=== PATIENT | female | born 1965 | race Caucasian/White ===

== ENCOUNTER 2017-03-01 07:32 | Emergency (ER) | payer BC ==
[2017-03-01 07:43] VITALS: BP 108/67
--- NOTE | 2017-03-01 07:49 | UC ---
Elbow Pain - HPI Summary HPI Summary: 51 yo female slipped and fell 2 days ago injuring left elbow she is right handed unable to fully extend - History of Current Complaint Chief Complaint: UCUpperExtremity Stated Complaint: LEFT ARM INJURY Time Seen by Provider: 03/01/17 07:37 Hx Obtained From: Patient Hx Last Menstrual Period: 3 years Onset/Duration: Days Severity Initially: Moderate Severity Currently: Moderate Pain Intensity: 4 Pain Scale Used: 0-10 Numeric Location Of Pain: Is Diffuse Character: Aching Aggravating Factor(s): Movement Alleviating Factor(s): Rest Associated Signs And Symptoms: Positive: Swelling, Bruising - Allergies/Home Medications Allergies/Adverse Reactions: Allergies Allergy/AdvReac Type Severity Reaction Status Date / Time No Known Allergies Allergy Verified 03/01/17 07:36 Home Medications: Home Medications Albuterol HFA INHALER* [Ventolin HFA Inhaler*] 2 puff INH Q4H PRN 03/01/17 [ History Confirmed 03/01/17] Cyclobenzaprine TAB* [Flexeril 10 MG TAB*] 5 mg PO TID PRN 03/01/17 [History Confirmed 03/01/17] PMH/Surg Hx/FS Hx/Imm Hx Previously Healthy: Yes Respiratory History Of: Reports: Asthma Cancer History Of: Denies: Breast Cancer - Surgical History Surgical History: Yes Surgery Procedure, Year, and Place: 2 C-SECT KNEE SX hernia repair. [facility] - Family History Known Family History: Positive: Cardiac Disease, Hypertension - Social History Alcohol Use: Occasionally Substance Use Type: None Smoking Status (MU): Never Smoked Tobacco Review of Systems Constitutional: Negative Skin: Bruising Eyes: Negative ENT: Negative Respiratory: Negative Cardiovascular: Negative Gastrointestinal: Negative Genitourinary: Negative Motor: Negative Neurovascular: Negative Musculoskeletal: Arthralgia Neurological: Negative Psychological: Negative All Other Systems Reviewed And Are Negative: Yes Physical Exam Triage Information Reviewed: Yes Appearance: Well-Appearing, No Pain Distress, Well-Nourished Vital Signs: Initial Vital Signs Temp 98.4 F 03/01/17 07:38 Pulse 82 03/01/17 07:38 Resp 18 03/01/17 07:38 BP 108/67 03/01/17 07:38 Pulse Ox 98 03/01/17 07:38 Vital Signs Reviewed: Yes Eyes: Positive: Conjunctiva Clear ENT: Positive: Hearing grossly normal. Negative: Nasal congestion, Nasal drainage, Trismus, Muffled/hoarse voice Neck: Positive: Supple, Nontender Respiratory: Positive: Lungs clear, Normal breath sounds, No respiratory distress Cardiovascular: Positive: RRR, No Murmur Musculoskeletal: Positive: ROM Limited @ - left elbow, unable to fully extend, Other: - bruising olecranon, diffusely tender, distal n/v intact Neurological: Positive: Alert Psychological Exam: Normal Skin: Negative: rashes, breakdown Elbow Pain Course/Dx - Differential Dx/Diagnosis Provider Diagnoses: left elbow injury (possible impaction fracture of radial head) Discharge - Discharge Plan Condition: Stable Disposition: HOME Patient Education Materials: Elbow Fracture (ED) Referrals: Tre Jarvis MD [Medical Doctor] - As Soon As Possible Additional Instructions: You MAY have an impaction fracture of the radial head The radiologist could not tell for sure Because you can not fully extend your elbow I suggest you see ortho alessandra ice twice daily motrin sling when necessary you may use your arm as tolerated
--- NOTE | 2017-03-01 08:14 | RAD ---
INDICATION: LEFT elbow pain radiating into the hand post fall 2 days ago. COMPARISON: None. TECHNIQUE: AP, lateral, and oblique views LEFT elbow. REPORT: While there is no significant fat pad displacement to indicate effusion there is a sharply angulated contour at the ulnar margin of the radial head neck junction concerning for potential subtle impaction fracture. Normal articular alignment. Dorsal soft tissue swelling. IMPRESSION: Potential mild impaction fracture at the radial head neck junction. No significant associated joint effusion.
== END 2017-03-01 08:37 | disposition home or self-care (01) ==
LOC: UCCORT 07:32
DX: S59.802A Other specified injuries of left elbow, initial encounter (principal); W01.0XXA Fall on same level from slipping, tripping and stumbling without subsequent striking against object, initial encounter; Y93.9 Activity, unspecified; Y99.9 Unspecified external cause status
CPT/HCPCS: 99213; G0463

== ENCOUNTER 2017-07-13 12:02 | Emergency (ER) | payer BC ==
[2017-07-13] MEDS ORDERED: predniSONE TAB* 20 MG PO ONE (12:20)
[2017-07-13] MEDS ORDERED: Albuterol/Ipratropium NEB.SOL* Albuterol 2.5 MG/Ipratropium 0.5 MG 3 ML INH ONE (12:20)
[2017-07-13 12:25] VITALS: BP 139/79
--- NOTE | 2017-07-13 12:40 | UC ---
Respiratory Complaint HPI - HPI Summary HPI Summary: cough and sinus congestion with chest burning for 2 days--no fevers daughter is in the ICU with elevated BS - History of Current Complaint Chief Complaint: UCRespiratory Stated Complaint: CONGESTION/COUGH Time Seen by Provider: 07/13/17 12:06 Hx Obtained From: Patient Hx Last Menstrual Period: 3 years ?: No Onset/Duration: Sudden Onset, Lasting Days - 2, Worse Since - today Timing: Constant Severity Initially: Mild Severity Currently: Moderate Pain Intensity: 5 - chest burning with cough Character: Cough: Nonproductive Aggravating Factors: Nothing Alleviating Factors: Nothing Associated Signs And Symptoms: Positive: Pleuritic Chest Pain, Nasal Congestion , Sinus Discomfort - Allergies/Home Medications Allergies/Adverse Reactions: Allergies Allergy/AdvReac Type Severity Reaction Status Date / Time No Known Allergies Allergy Verified 07/13/17 12:25 Home Medications: Home Medications Pseudoephedrine HCL ER TAB* [Sudafed 12 Hour*] 1 tab DAILY PRN 07/13/17 [ History Confirmed 07/13/17] PMH/Surg Hx/FS Hx/Imm Hx Previously Healthy: No - enviromental allergies Respiratory History: Asthma - Surgical History Surgical History: Yes Surgery Procedure, Year, and Place: 2 C-SECT KNEE SX. hernia repair. [facility] - Family History Known Family History: Positive: Cardiac Disease, Hypertension - Social History Occupation: Employed Full-time Lives: With Family Alcohol Use: Occasionally Substance Use Type: None Smoking Status (MU): Never Smoked Tobacco - Immunization History Most Recent Influenza Vaccination: NOT YET 2017 Review of Systems Constitutional: Chills, Fatigue Skin: Negative Eyes: Negative ENT: Nasal Discharge, Sinus Congestion Respiratory: Cough Cardiovascular: Negative Gastrointestinal: Negative Genitourinary: Negative Motor: Negative Neurovascular: Negative Musculoskeletal: Negative Neurological: Negative Psychological: Negative Is Patient Immunocompromised?: No All Other Systems Reviewed And Are Negative: Yes Physical Exam Triage Information Reviewed: Yes Appearance: Well-Nourished, Ill-Appearing - mild, Pain Distress - mild Vital Signs: Initial Vital Signs Temp 98.9 F 07/13/17 12:20 Pulse 87 07/13/17 12:20 Resp 18 07/13/17 12:20 BP 139/79 07/13/17 12:20 Pulse Ox 98 07/13/17 12:20 Vital Signs Reviewed: Yes Eye Exam: Normal Eyes: Positive: Conjunctiva Clear ENT Exam: Normal ENT: Positive: Normal ENT inspection, Hearing grossly normal, Pharynx normal, Nasal congestion, TMs normal. Negative: Tonsillar swelling, Tonsillar exudate, Trismus, Muffled/hoarse voice Dental Exam: Normal Neck exam: Normal Neck: Positive: Supple, Nontender, No Lymphadenopathy Respiratory Exam: Normal Respiratory: Positive: Chest non-tender, Lungs clear, No respiratory distress, No accessory muscle use, Decreased breath sounds Cardiovascular Exam: Normal Cardiovascular: Positive: Pulses Normal, Brisk Capillary Refill Musculoskeletal Exam: Normal Musculoskeletal: Positive: Strength Intact, ROM Intact, No Edema Neurological Exam: Normal Neurological: Positive: Alert, Muscle Tone Normal Psychological Exam: Normal Skin Exam: Normal UC Diagnostic Evaluation - Laboratory O2 Sat by Pulse Oximetry: 98 Re-Evaluation - Re-Evaluation First Eval Change: Improved - less burning increase aeration Respiratory Course/Dx - Course Course Of Treatment: augmentin, prednisone, albuterol, increase fluids, follow with pcp - Differential Dx/Diagnosis Differential Diagnosis/HQI/PQRI: Bronchitis, Laryngitis, Lower Resp Infection, Sinusitis Provider Diagnoses: Acute exacerbation of asthma, bronchospasm, sinusitis Discharge - Discharge Plan Condition: Stable Disposition: HOME Patient Education Materials: Bronchospasm (ED), Rhinosinusitis (ED) Referrals: Ceci Mauricio PA [Primary Care Provider] - If Needed
== END 2017-07-13 13:05 | disposition home or self-care (01) ==
LOC: UCCORT 12:02
DX: J45.901 Unspecified asthma with (acute) exacerbation (principal); J98.01 Acute bronchospasm; J32.9 Chronic sinusitis, unspecified
CPT/HCPCS: 99212; A9270-GY; G0463; J7512